=== PATIENT | female | born 1940 | race Caucasian/White ===

== ENCOUNTER → 2016-10-16 19:28 | Outpatient (CLI) | payer MEDICARE, MEDICAID ==
[~2016-10-16 19:28] MED LIST: ASPIRIN EC81 M1 PO; DITROPAN X10 MG/BOTT PO; EFFEXOR XR37.5 MG PO; ELIQUIS2.5 MG PO; FLUTICASONE PRO16 GM NASAL; GAS-X80 MG PO; HYDROCODONE-APA1 TAB PO; K-DUR20 MEQ PO; LASIX20 MG PO; LINZESS145 MCG PO; LIPITOR40 MG PO; MEGACE40 MG PO; MIRALAX17 GM PO; MOBIC7.5 MG PO; NICODERM C1 PATCH .3 TRANSDERM; NITROSTAT0.4 MG SL; PLAVIX75 MG PO; PROTONIX40 MG PO; PROVIGIL200 MG PO; SYNTHROID88 MCG PO; VALIUM5 MG PO; ZANTAC150 MG PO
[2016-11-11 10:28] VITALS: BMI 19.8
== END | disposition home or self-care (01) ==
LOC: D.LABREF 19:28
DX: M25.561 Pain in right knee (principal); Z11.8 Encounter for screening for other infectious and parasitic diseases

== ENCOUNTER 2016-11-11 06:23 | Inpatient (IN) | payer MEDICARE ==
[2016-11-07 14:38] LABS: BASOPHILS 0.5 % (0.0-2.0); EOSINOPHILS 0.8 % (0-7); HEMATOCRIT 41.1 % (36.0-48.0); HEMOGLOBIN 13.7 g/dL (12-16); IMMATURE GRANULOCYTES 0.5 % (0-5); LYMPHOCYTES 25.4 % (15-50); MCH 31.7 pg (26.0-34.0); MCHC 33.3 g/dL (31.0-37.0); MCV 95.1 fL (80.0-100.0); MEAN PLATELET VOLUME 11.1 fL (7.4-10.4); MONOCYTES 5.4 % (2-11); NEUTROPHILS 67.4 % (40-80); PLATELET COUNT 133 10x3/uL (130-400); RBC 4.32 10x6/uL (4.00-5.40); RDW 13.3 % (11.5-14.5); WBC 8.3 10x3/uL (4.8-10.8)
[2016-11-07 14:46] LABS: APPEARANCE CLEAR (CLEAR); BILIRUBIN NEGATIVE (NEGATIVE); COLOR YELLOW (YELLOW); GLUCOSE NEGATIVE (NEGATIVE); KETONE NEGATIVE (NEGATIVE); LEUKOCYTE ESTERASE NEGATIVE (NEGATIVE); NITRITE NEGATIVE (NEGATIVE); PROTEIN NEGATIVE (NEGATIVE); SPECIFIC GRAVITY 1.005 (1.005-1.020); UROBILINOGEN NORMAL (NORMAL)
[2016-11-07 14:55] LABS: APTT 28.6 SECONDS (22.8-39.4); INR 1.03 (0.85-1.17); PROTIME 13.4 SECONDS (11.6-15.0)
[2016-11-07 15:09] LABS: CALC OSMOLALITY 263 mosm/kg (275-300); CALCIUM 9.3 mg/dL (8.5-10.1); CARBON DIOXIDE 30.5 mmol/L (21.0-32.0); CHLORIDE - SERUM 95 mmol/L (98-107); CREATININE - SERUM 0.7 mg/dL (0.6-1.3); GLUCOSE 84 mg/dL (74-106); POTASSIUM - SERUM 4.1 mmol/L (3.5-5.1); SODIUM 133 mmol/L (136-145); UREA NITROGEN 11 mg/dL (7-18); eGFR NON AFRICAN AMERICAN 86 mL/min (90-120)
[~2016-11-11] VITALS: Ht 157.5 cm; Wt 49.1 kg
[2016-11-11] VITALS (11 sets, daily range): BP systolic 106–141; BP diastolic 53–84; Ht 157.5 cm; Wt 49.1 kg
[~2016-11-11 06:23] MED LIST changes: -ELIQUIS2.5 MG PO; -NICODERM C1 PATCH .3 TRANSDERM
--- NOTE | 2016-11-11 08:44 | NUR ---
DEYSI,ALCOHOL WASH OF L-LEG AND FOOT PRIOR TO CHLORPREP PER LOLA INMAN
--- NOTE | 2016-11-11 10:52 | NUR ---
RECIEVED PATIENT VIA BED WITH NURSE FROM RECOVERY ROOM. PATIENT AWAKE, ALERT AND ORIENTED X'S 4. RESPIRATIONS ARE EVEN AND UNLABORED ON ROOM AIR. NO SIGNS OF DISTRESS NOTED. PATIENT DENIES PAIN. PATIENT HAS DRESSING CLEAN, DRY AND INTACT TO LEFT KNEE. NO SWELLING NOTED. PALPATED BILATERAL PEDAL PULSE, +2 EQUALLY STRONG. CAPILLARY REFILL LESS THEN 3 SECONDS IN ALL EXTREMETIES. BED ALARM ON. SCDS TO BILATERAL LEGS. PATIENT'S FRIEND IN ROOM. ASSISTED PATIENT USING THE BEDPAN. PATIENT TURNED INDEPENDENTLY. PATIENT VOIDED. CLEANED HER UP. EDUCATED PATIENT ON TURN, COUGH AND DEEP BREATH EVERY 2 HOURS. PATIENT DEMONSTRATED AND VERBALIZED UNDERSTANDING. BROUGHT PATIENT A CUP OF ICED COLA AND ICED WATER PER PATIENT REQUEST. PATIENT DENIES FURTHER NEEDS AT THIS TIME.
--- NOTE | 2016-11-11 13:49 | NUR ---
* Is the patient Alert and Oriented? Yes 0 * How many steps to enter\exit or inside your home? 5 0 * PCP Dr. Feliz Garza 0 * Pharmacy [facility] 0 * Preadmission Environment Home Alone 0 * ADLs Independent 0 * Equipment Cane Rolling Walker 0 * List name and contact numbers for known caregivers / representatives who currently or will assist patient after discharge: Friend - Danica Meyer [phone] 0 * Community resources currently utilized Home Health 0 * Please name any agencies selected above. [facility] 0 * Additional services required to return to the preadmission environment? Yes 0 * Can the patient safely return to the preadmission environment? Yes 0 * Has this patient been hospitalized within the prior 30 days at any hospital? No 11/11/2016 13:50 DCP: Discharge Planning Patient Name: MADINA HUFFMAN Admission Status: Elective Accout number: [id number] Admission Date: 11-11-2016 : 1940 Admission Diagnosis: Attending: TAMIA Current LOS: 1 Anticipated DC Date: 11-14-2016 Planned Disposition: Half-Way Facility Primary Insurance: MEDICARE A & B Discharge Planning Comments: CM met with patient to assess dc plans/needs. Patient states she lives alone. She is currently on service with [facility]. She has a walker and cane at home. Discussed dc options with patient - she agrees she will need to go somewhere for rehab prior to returning home. Reviewed list of local [facility] facilities - [facility] signed for [facility]. Initial referral faxed and called to [facility]. CM will follow. Telecommunications Field Technician: Ursula Mccallum
--- NOTE | 2016-11-11 17:07 | OP ---
PATIENT NAME: MADINA HUFFMAN MEDICAL RECORD: [id number] :[birth year] LOCATION:[facility] [id number] ADMISSION DATE:11/11/16 SURGEON: CHEN GARCIA MD DATE OF OPERATION: 11/11/2016 PREOPERATIVE DIAGNOSIS: Painful total knee arthroplasty. POSTOPERATIVE DIAGNOSIS: Painful total knee arthroplasty. PROCEDURE: Revision of left total knee arthroplasty. SURGEON: Chen Garcia MD ANESTHESIA: General. INTRAOPERATIVE COMPLICATIONS: None. 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 All components were removed with very little degree of bone loss. The patella was in overall good condition and was not removed. IMPLANTS USED: 1. Triathlon total stabilizing system, size 2 left femur total stabilized with a 2 medial and lateral distal augments cemented 100 x 12 stem with no offset. 2. A 5-mm lateral augment on the base of the tibial, 9 x 100 stem and a 2 x 11 total stabilized polyethylene insert. Note, that the bone plugs were used. OPERATIVE SUMMARY IN DETAIL: After obtaining the appropriate preoperative orthopedic surgery consents as well as anesthetic consultation, evaluation and clearance, the patient was brought to the operating room and placed on table in supine position. After general laryngeal mask was administered, tourniquet was placed about the proximal aspect of the left lower extremity. Left lower extremity was prepped and draped in routine sterile fashion. Leg was elevated, exsanguinated and tourniquet was inflated to 350 mmHg. Routine midline incision in keeping with the old incision was taken down. Paramedian arthrotomy was performed and copious amounts of polyethylene fragments were noted at this time, further dissection was carried down, patella was everted and the components were exposed. Upon exposure of the components, the polyethylene was as noted above. The femur was in no way scratched or scraped; however, in removing the polyethylene component the screws were found to be loose and as the screws were loose the tibial component came out and when the tibial component came out we knew we had to take out the femoral component. The femoral component actually did come out with relative ease due to the backside osteolysis with minimal amount of bone loss. At this point, the appropriate measurements were taken. Serial and sequential reaming down the femur were done followed by distal femoral cuts and box cutting for a size 2. The trials corresponding to the above-mentioned plans was created and put into place and left in place to protect the distal femur while the tibia was prepared. Serial and sequential reaming were done on the tibia to size 11, proximal tibial cleanup cut was made. Due to the amount of osteolysis on the lateral side, I felt like it was reasonable to put a 5 mm augment on the lateral side underneath the tibial baseplate. Again, the trial component was created with a 2 mm offset and then OPERATIVE REPORT [id number] MADINA HUFFMAN serial and sequential polyethylene trials were undertaken and it was felt that the 11 was the most stable for this lady's construct. All trial components were removed. The knee was copiously irrigated and all excess polyethylene and extended synovectomy was performed. Final components were then assembled on the back table. They were cemented in place. All excess cement was removed. After the cement was allowed to harden, the knee was taken through a range of motion and found to be stable in all planes. Paramedian arthrotomy was closed with #2 Ethibond. This was followed by #1 Vicryl, 2-0 Vicryl and skin carla. Sterile dressings were applied. The patient was awakened, taken to recovery room in stable condition. All final needle and sponge counts were correct. TRANSINT:[id number] Voice Confirmation ID: [id number] DOCUMENT ID: [id number] CHEN GARCIA MD at 1707 CC: [id number] DICTATION DATE: 11/11/16 0951 TABLE GAMES MANAGER: 11/11/16 1222 ADM IN [facility] [address] [place] [address]
--- NOTE | 2016-11-11 19:00 | NUR ---
PATIENT SUPINE IN BED. HOB 30 DEGREES. AAOX4. RR EVEN AND UNLABORED. 0 S/S OF DISTRESS. STATES PAIN IS A 4/10. IV TO RIGHT FA PATENT WITH NO REDNESS OR SWELLING. DRESSING TO LEFT KNEE CDI. SCD'S ON. B/A ON. SRX2. BED LOW. CALL LIGHT WITHIN REACH.
--- NOTE | 2016-11-11 20:55 | NUR ---
PATIENT STATES THAT SHE IS VERY UNCOMFORTABLE AND PAIN IS NOW A 6/10. NORCO GIVEN FOR PAIN.
--- NOTE | 2016-11-11 22:15 | NUR ---
PATIENT STATES PAIN PILL HAS NOT HELPED AT ALL. INIIATED DILAUDID PRIME MINISTER PER ORDER.
[2016-11-12 01:00] VITALS: BP 122/58
[2016-11-12 05:00] VITALS: BP 131/84
[2016-11-12 05:59] LABS: BASOPHILS 0.4 % (0.0-2.0); EOSINOPHILS 1.2 % (0-7); HEMATOCRIT 27.4 % (36.0-48.0); HEMOGLOBIN 9.2 g/dL (12-16); IMMATURE GRANULOCYTES 0.2 % (0-5); LYMPHOCYTES 32.7 % (15-50); MCH 31.5 pg (26.0-34.0); MCHC 33.6 g/dL (31.0-37.0); MCV 93.8 fL (80.0-100.0); MEAN PLATELET VOLUME 10.5 fL (7.4-10.4); MONOCYTES 9.1 % (2-11); NEUTROPHILS 56.4 % (40-80); PLATELET COUNT 135 10x3/uL (130-400); RBC 2.92 10x6/uL (4.00-5.40); RDW 13.5 % (11.5-14.5); WBC 9.7 10x3/uL (4.8-10.8)
[2016-11-12 06:24] LABS: ALBUMIN 3.1 g/dL (3.4-5.0); ANION GAP 9.6 mmol/L (8-16); BILIRUBIN - TOTAL 0.4 mg/dL (0.2-1.3); CALCIUM 8.6 mg/dL (8.5-10.1); CARBON DIOXIDE 27.9 mmol/L (21.0-32.0); CREATININE - SERUM 0.8 mg/dL (0.6-1.3); POTASSIUM - SERUM 3.5 mmol/L (3.5-5.1); PROTEIN - SERUM 5.7 g/dL (6.4-8.2)
--- NOTE | 2016-11-12 06:45 | NUR ---
WENT TO PUT PATIENT ON BEDPAN AND NOTICED THAT SHE HAD BLED THROUGH HER BANDAGE ALL OVER HER PAD AND SHEETS. STRIPPED BANDAGE DOWN TO AQUACEL. REINFORCED WITH 4X4'S AND ABD PADS. REWRAPPED WITH CHRISTINA WRAP. APPLIED ICE. CHANGED LINENS AND GOWN.
--- NOTE | 2016-11-12 07:15 | NUR ---
PATIENT AWAKE, ALERT AND ORIENTED X'S 4. RESPIRATIONS ARE EVEN AND UNLABORED ON ROOM AIR. NO SIGNS OF DISTRESS NOTED. ASSISTED PATIENT ON AND OFF OF THE BEDPAN. PATIENT DENIES FURTHER NEEDS AT THIS TIME. RATED PAIN A 2/10.
[2016-11-12 08:18] VITALS: BP 146/52
--- NOTE | 2016-11-12 09:36 | NUR ---
PATIENT SITTING UP IN THE CHAIR. CHAIR ALARM ON. DOOR OPEN. NURSING STUDENTS IN THE ROOM CHANGING THE LINENS. PATIENT HAS CALL LIGHT IN REACH. REMINDED PATIENT TO PUSH THE CALL LIGHT IF SHE NEEDS TO GET UP. PATIENT VERBALIZED UNDERSTANDING AND DENIES NEEDS.
[2016-11-12 12:01] VITALS: BP 141/59
[2016-11-12 14:59] VITALS: BP 136/58
--- NOTE | 2016-11-12 19:00 | NUR ---
PATIENT ON CPM
[2016-11-12 21:00] VITALS: BP 162/78
[2016-11-13 01:00] VITALS: BP 179/76
--- NOTE | 2016-11-13 04:36 | NUR ---
EYES CLOSED RESPIRATIONS WITH EASE AND UNLABORED.
[2016-11-13 05:00] VITALS: BP 166/78
[2016-11-13 05:11] LABS: BASOPHILS 0.3 % (0.0-2.0); EOSINOPHILS 1.6 % (0-7); HEMATOCRIT 31.4 % (36.0-48.0); HEMOGLOBIN 10.8 g/dL (12-16); IMMATURE GRANULOCYTES 0.4 % (0-5); MCH 31.9 pg (26.0-34.0); MCHC 34.4 g/dL (31.0-37.0); MCV 92.6 fL (80.0-100.0); MEAN PLATELET VOLUME 10.6 fL (7.4-10.4); NEUTROPHILS 71.7 % (40-80); PLATELET COUNT 136 10x3/uL (130-400); RBC 3.39 10x6/uL (4.00-5.40); RDW 13.4 % (11.5-14.5); WBC 9.6 10x3/uL (4.8-10.8)
[2016-11-13 05:37] LABS: ALBUMIN 3.3 g/dL (3.4-5.0); ALKALINE PHOSPHATASE 71 U/L (46-116); CALC OSMOLALITY 264 mosm/kg (275-300); CALCIUM 9.2 mg/dL (8.5-10.1); CARBON DIOXIDE 27.3 mmol/L (21.0-32.0); CHLORIDE - SERUM 98 mmol/L (98-107); CREATININE - SERUM 0.7 mg/dL (0.6-1.3); GLUCOSE 113 mg/dL (74-106); SODIUM 133 mmol/L (136-145); UREA NITROGEN 6 mg/dL (7-18); eGFR NON AFRICAN AMERICAN 86 mL/min (90-120)
[2016-11-13 05:52] LABS: ALT (SGPT) 39 U/L (10-68)
--- NOTE | 2016-11-13 07:05 | NUR ---
PATIENT RECEIVED ALERT IN LOW MONTERO POSITION. NO SIGNS OF DISTRESS NOTED. CPM IN PLACE. DENIES NEEDS. SIDE RAILS UP X2. BED IN LOW POSITION. CALL LIGHT IN REACH.
[2016-11-13 08:05] VITALS: BP 155/76
--- NOTE | 2016-11-13 08:45 | NUR ---
PATIENT ALERT IN WATCHING TV. NO SIGNS OF DISTRESS NOTED. C/O PAIN 01/13. 1 TAB NORCO ADMINISTERED PER PRN ORDER. DENIES FURTHER NEEDS. [facility] AT BEDSIDE. CALL LIGHT IN REACH. SIDE RAILS UP X2. BED IN LOW POSITION. CALL LIGHT IN REACH.
--- NOTE | 2016-11-13 12:30 | NUR ---
SITTING UP IN CHAIR ALERT. NO SIGNS OF DISTRESS NOTED. DENIES NEEDS. CALL LIGHT IN REACH.
--- NOTE | 2016-11-13 14:38 | NUR ---
ALERT IN HIGH MONTERO POSITION WATCHING TV. NO SIGNS OF DISTRESS NOTED. C/O PAIN. NORCO ADMINISTERED PER PRN ORDER. SIDE RAILS UP X2. BED IN LOW POSITION. CALL LIGHT IN REACH.
--- NOTE | 2016-11-13 16:15 | NUR ---
ASSISTED UP TO BSC THEN BACK TO BED ASSIST X1. POSITIONED SELF FOR COMFORT. WELL TOLERATED. SIDE RAILS UP X2. BED IN LOW POSITION. CALL LIGHT IN REACH.
--- NOTE | 2016-11-13 18:00 | NUR ---
ALERT IN BED. CPM TO LEFT LEG. TOLERATING WELL. OXY IR ADMINISTERED PER PRN ORDER. CALL LIGHT IN REACH. BED IN LOW POSITION.
[2016-11-13 21:00] VITALS: BP 145/71
[2016-11-14 01:00] VITALS: BP 140/72
--- NOTE | 2016-11-14 02:34 | NUR ---
PT RESTING QUIETLY, EYES CLOSED. VOIDING FREQUENTLY TONIGHT. PASSING GAS. GAVE PAIN MED ONCE THIS SHIFT. PT TURNS SELF AND MOVES FREQUENTLY IN BED. COUGH AND DEEP BREATH OFTEN. WILL CONTINUE TO MONITOR.
[2016-11-14 05:00] VITALS: BP 140/68
[2016-11-14 05:30] LABS: BASOPHILS 0.2 % (0.0-2.0); EOSINOPHILS 1.7 % (0-7); HEMATOCRIT 32.3 % (36.0-48.0); HEMOGLOBIN 10.9 g/dL (12-16); IMMATURE GRANULOCYTES 0.3 % (0-5); LYMPHOCYTES 24.9 % (15-50); MCH 31.4 pg (26.0-34.0); MCHC 33.7 g/dL (31.0-37.0); MCV 93.1 fL (80.0-100.0); MEAN PLATELET VOLUME 10.9 fL (7.4-10.4); MONOCYTES 8.5 % (2-11); NEUTROPHILS 64.4 % (40-80); PLATELET COUNT 159 10x3/uL (130-400); RBC 3.47 10x6/uL (4.00-5.40); RDW 13.2 % (11.5-14.5); WBC 9.5 10x3/uL (4.8-10.8)
[2016-11-14 06:00] LABS: ALBUMIN 3.5 g/dL (3.4-5.0); ALKALINE PHOSPHATASE 81 U/L (46-116); ALT (SGPT) 43 U/L (10-68); BILIRUBIN - TOTAL 0.64 mg/dL (0.2-1.3); CALC OSMOLALITY 265 mosm/kg (275-300); CALCIUM 9.5 mg/dL (8.5-10.1); CARBON DIOXIDE 28.7 mmol/L (21.0-32.0); CHLORIDE - SERUM 97 mmol/L (98-107); CREATININE - SERUM 0.7 mg/dL (0.6-1.3); GLUCOSE 94 mg/dL (74-106); POTASSIUM - SERUM 3.5 mmol/L (3.5-5.1); PROTEIN - SERUM 7.2 g/dL (6.4-8.2); SODIUM 134 mmol/L (136-145); UREA NITROGEN 7 mg/dL (7-18); eGFR NON AFRICAN AMERICAN 86 mL/min (90-120)
--- NOTE | 2016-11-14 07:25 | NUR ---
PATIENT RECEIVED ALERT IN HIGH MONTERO POSITION. RESPIRATIONS EVEN AND UNLABORED. SIDE RAILS UP X2. BED IN LOW POSITION. CALL LIGHT IN REACH.
[2016-11-14 07:44] VITALS: BP 148/64
[2016-11-14] MEDS ORDERED: ELIQUIS2.5 MG PO (07:52)
[2016-11-14] MEDS ORDERED: HYDROCODONE-APA1 TAB PO (07:54)
--- NOTE | 2016-11-14 08:13 | NUR ---
PATIENT ALERT IN BED. NO SIGNS OF DISTRESS NOTED. SCHEDULED MEDICATION ADMINISTERED. SIDE RAILS UP X2. BED IN LOW POSITION. CALL LIGHT IN REACH.
[2016-11-14] MEDS ORDERED: NICODERM C1 PATCH .3 TRANSDERM (08:21)
--- NOTE | 2016-11-14 08:26 | NUR ---
11/14/2016 8:22 DCP: Discharge Planning Patient Name: MADINA HUFFMAN Encounter No: [id number] : 1940 Primary Insurance: MEDICARE A & B Anticipated DC Date: 11-11-2016 Planned Disposition: Longterm Facility External Planned Provider: Meri Lyon DCP follow-up note: DC order rec'd. Patient has been accepted to [facility] for penitentiary[facility]rehab. Patient in agreement with discharge plan. No changes to plan. Facility van will transport patient to penitentiary bed. Nursing to call report to [phone]. Ursula Mccallum
--- NOTE | 2016-11-14 10:20 | NUR ---
ALERT IN BED. IV TO RIGHT FOREARM D/C WITH CATH TIP INTACT. SITE COVERED WITH GAUZE AND BANDAID. DRESSING TO LEFT KNEE CHANGED. 28 ALTA INTACT. NO REDNESS, INFLAMMATION OR DRAINAGE NOTED. NEW AQUACEL AG PLACED OVER INCISION
--- NOTE | 2016-11-14 11:00 | NUR ---
REPORT CALLED TO [facility]. LAVINIA RECEIVING REPORT
--- NOTE | 2016-11-14 12:55 | NUR ---
D/C TEACHING PROVIDED TO PATIENT. STATES UNDERSTANDING. ALL QUESTIONS ANSWERED
--- NOTE | 2016-11-14 13:20 | NUR ---
PATIENT D/C TO [facility] WITH STAFF. TRANSFERRED DOWNSTAIRS VIA WHEELCHAIR
== END 2016-11-14 13:26 | DRG 467 ==
LOC: D.SDCHOLD 06:23 → D.MS 06:23 → D.SDCHOLD 07:30 → D.MS 09:38
PROVIDERS: Emergency Medicine; ADMIT Orthopaedic Surgery
PROC: 0SPD0JZ Removal of Synthetic Substitute from Left Knee Joint, Open Approach (ICD-10-PCS; 2016-11-11)
PROC: 0SRD0J9 Replacement of Left Knee Joint with Synthetic Substitute, Cemented, Open Approach (ICD-10-PCS; principal; 2016-11-11 08:00)
DX: T84.84XA Pain due to internal orthopedic prosthetic devices, implants and grafts, initial encounter (principal); D62 Acute posthemorrhagic anemia; T84.033A Mechanical loosening of internal left knee prosthetic joint, initial encounter; T84.053A Periprosthetic osteolysis of internal prosthetic left knee joint, initial encounter; R01.1 Cardiac murmur, unspecified; I25.10 Atherosclerotic heart disease of native coronary artery without angina pectoris; E03.9 Hypothyroidism, unspecified; K59.00 Constipation, unspecified; Z95.5 Presence of coronary angioplasty implant and graft; F17.200 Nicotine dependence, unspecified, uncomplicated

== ENCOUNTER → 2016-12-09 12:04 | Outpatient (CLI) | payer MEDICARE ==
[2016-11-11 10:28] VITALS: BMI 19.8
[~2016-12-09 12:04] MED LIST changes: +ELIQUIS2.5 MG PO; +NICODERM C1 PATCH .3 TRANSDERM
[2016-12-09 12:57] LABS: BASOPHILS 0.6 % (0.0-2.0); EOSINOPHILS 1.5 % (0-7); HEMATOCRIT 35.9 % (36.0-48.0); HEMOGLOBIN 11.6 g/dL (12-16); IMMATURE GRANULOCYTES 0.3 % (0-5); LYMPHOCYTES 21.2 % (15-50); MCH 30.1 pg (26.0-34.0); MCHC 32.3 g/dL (31.0-37.0); MEAN PLATELET VOLUME 10.3 fL (7.4-10.4); MONOCYTES 7.7 % (2-11); NEUTROPHILS 68.7 % (40-80); PLATELET COUNT 285 10x3/uL (130-400); RBC 3.86 10x6/uL (4.00-5.40); WBC 6.5 10x3/uL (4.8-10.8)
[2016-12-09 15:41] LABS: ERYTHROCYTE SEDIMENTATION RATE 12 mm/hr (0-30)
== END | disposition home or self-care (01) ==
LOC: D.LABREF 12:04
PROVIDERS: Orthopaedic Surgery
DX: M19.91 Primary osteoarthritis, unspecified site (principal); R53.82 Chronic fatigue, unspecified; M81.8 Other osteoporosis without current pathological fracture

== ENCOUNTER → 2017-12-09 10:08 | Outpatient (CLI) | payer MEDICARE ==
[2016-11-11 10:28] VITALS: BMI 19.8
[2017-12-09 10:57] LABS: BASOPHILS 0.3 % (0-2); EOSINOPHILS 1.2 % (0-7); HEMATOCRIT 37.4 % (36.0-48.0); HEMOGLOBIN 12.5 g/dL (12-16); IMMATURE GRANULOCYTES 0.4 % (0-5); LYMPHOCYTES 18.7 % (15-50); MCH 31.6 pg (26.0-34.0); MCHC 33.4 g/dL (31.0-37.0); MCV 94.7 fL (80.0-100.0); MEAN PLATELET VOLUME 9.9 fL (7.4-10.4); MONOCYTES 7.9 % (2-11); NEUTROPHILS 71.5 % (40-80); RBC 3.95 10x6/uL (4.00-5.40); RDW 13.2 % (11.5-14.5); WBC 11.5 10x3/uL (4.8-10.8)
[2017-12-09 11:10] LABS: ANION GAP 11.7 mmol/L (8-16); C-REACTIVE PROTEIN 0.3 mg/dL (0.0-0.9); CALCIUM 9.2 mg/dL (8.5-10.1); CARBON DIOXIDE 30.6 mmol/L (21.0-32.0); CREATININE - SERUM 0.9 mg/dL (0.6-1.3); POTASSIUM - SERUM 3.3 mmol/L (3.5-5.1)
[2017-12-09 11:11] LABS: PLATELET COUNT 170 10x3/uL (130-400)
[2017-12-09 12:16] LABS: ERYTHROCYTE SEDIMENTATION RATE 20 mm/hr (0-30)
== END | disposition home or self-care (01) ==
LOC: D.LAB 12-08 09:30 → D.NM 12-08 09:45 → D.LAB 12-08 14:00 → D.NM 10:00
PROVIDERS: Orthopaedic Surgery
DX: T84.84XA Pain due to internal orthopedic prosthetic devices, implants and grafts, initial encounter (principal)